=== PATIENT | female | born 1940 | race Caucasian/White ===

== ENCOUNTER 2021-07-08 20:14 | Emergency (ER) | payer MEDICARE ==
[~2021-07-08] VITALS: Ht 160 cm; Wt 63.5 kg
[2021-07-08] MEDS ORDERED: [UNRECOGNIZED DRUG - REMARK] (20:33)
[2021-07-08] MEDS ORDERED: COZAAR 25 MG TA25 M1 PO (20:33)
[2021-07-08] MEDS ORDERED: HYDROCHLOROTHIA25 M1 PO (20:33)
[2021-07-08] MEDS ORDERED: VITAMIN D310 MC1 PO (20:33)
[2021-07-08 22:31] VITALS: BP 157/72
== END 2021-07-08 22:23 | disposition home or self-care (01) ==
LOC: M.ERS 20:14
DX: S00.93XA Contusion of unspecified part of head, initial encounter (principal); I10 Essential (primary) hypertension; E78.00 Pure hypercholesterolemia, unspecified; Z79.899 Other long term (current) drug therapy; Z88.8 Allergy status to other drugs, medicaments and biological substances; W19.XXXA Unspecified fall, initial encounter; Y93.89 Activity, other specified; Y92.89 Other specified places as the place of occurrence of the external cause; Y99.8 Other external cause status